=== PATIENT | male | born 1995 | race Caucasian/White ===

== ENCOUNTER 2016-08-24 12:35 | Inpatient (IN) | payer OTHER ==
[~2016-08-24] VITALS: Ht 177.8 cm; Wt 57.9 kg
[~2016-08-24 12:35] MED LIST: ALPRAZOLAM0.25 M2 PO; NASONEX17 GM BOTH NARES; OFLOXACIN10 M1 LEFT EYE; ZITHROMAX Z-PA250 MG PO
[2016-08-24 14:07] LABS: EOSINOPHIL (%) 3.1 % (0-5); EOSINOPHIL COUNT 0.2 K/uL (0-0.3); HEMATOCRIT 44.6 % (38.0-50.0); LYMPHOCYTE COUNT 2.4 K/uL (1.0-2.8); MCH 35.7 PG (29.0-34.0); MCHC 35.7 G/DL (30.0-36.0); MEAN PLAT.VOLUME 9.7 uM^3 (9.0-12.4); MONOCYTE COUNT 0.6 K/uL (0-0.8); NEUTROPHIL COUNT 2.6 K/uL (1.8-6.4); PLATELET COUNT 176 K/uL (156-360); RBC DIS.WIDTH-CV 12.8 % (11.8-14.6); RBC DIS.WIDTH-SD 45.6 % (39-53); RED BLOOD COUNT 4.46 M/uL (4.00-5.50); WHITE BLOOD COUNT 5.8 K/uL (4.1-10.2)
[2016-08-24] MEDS ORDERED: TRUVADA1 TABLET PO (14:09)
[2016-08-24] MEDS ORDERED: REYATAZ300 MG PO (14:10)
[2016-08-24] MEDS ORDERED: NORVIR100 M1 PO (14:10)
[2016-08-24 14:17] LABS: CHLORIDE 106 mEq/L (99-109); POTASSIUM 3.6 mEq/L (3.7-5.4); SODIUM 140 mEq/L (136-147)
[2016-08-24 14:19] LABS: GLUCOSE 84 mg/dL (70-99)
[2016-08-24 14:21] LABS: ANION GAP 10 MEQ/L (2-14); TOTAL BILIRUBIN 3.8 mg/dL (0.0-1.0)
[2016-08-24 14:22] LABS: SERUM ETHYL ALCOHOL < 10 mg/dL
[2016-08-24 14:23] LABS: ALKALINE PHOSPHATASE 87 IU/L (3-129); GFR ESTIMATE (CALCULATED) > 59 mL/min/
[2016-08-24 14:24] LABS: UREA NITROGEN (BUN) 13 mg/dL (9-23)
[2016-08-24 16:07] LABS: ADD MEDTOX COMMENT Y; AMPHETAMINE NEGATIVE (500 ng/mL); BARBITURATES NEGATIVE (200 ng/mL); BENZODIAZEPINES PRESUMPTIVE POSITIVE (150 ng/mL); COCAINE NEGATIVE (150 ng/mL); INTERNAL CONTROLS VALID? YES; METHADONE NEGATIVE (200 ng/mL); METHAMPHETAMINE NEGATIVE (500 ng/mL); OPIATES (MORPHINE) NEGATIVE (100 ng/mL); OXYCODONE PRESUMPTIVE POSITIVE (100 ng/mL); PHENCYCLIDINE NEGATIVE (25 ng/mL); PROPOXYPHENE NEGATIVE (300 ng/mL); THC CANNABINOIDS PRESUMPTIVE POSITIVE (50 ng/mL); TRICYCLIC ANTIDEPRESSANTS NEGATIVE (300 ng/mL)
[2016-08-24 16:44] VITALS: BP 121/57
[2016-08-24 16:48] LABS: BENZODIAZEPINES, URINE SCREEN POSITIVE (200 ng/mL)
[2016-08-25 07:50] VITALS: BP 102/48
[2016-08-25 15:11] VITALS: BP 138/67
[2016-08-26 07:47] VITALS: BP 114/58
== END 2016-08-26 11:59 | disposition home or self-care (01) | DRG 885 ==
LOC: EME 12:35 → 1WEST 15:22 → EDOF 15:22 → 1WEST 16:40
PROVIDERS: Emergency Medicine
DX: F33.9 Major depressive disorder, recurrent, unspecified (principal); R45.851 Suicidal ideations; B20 Human immunodeficiency virus [HIV] disease; F12.10 Cannabis abuse, uncomplicated; F11.10 Opioid abuse, uncomplicated
CPT/HCPCS: 80053; 84999; 85025; 90839; 99281; 99285; G0480

== ENCOUNTER 2017-07-15 16:16 | Emergency (ER) | payer OTHER ==
[~2017-07-15] VITALS: Ht 177.8 cm; Wt 63.5 kg
[~2017-07-15 16:16] MED LIST changes: +NORVIR100 M1 PO; +REYATAZ300 MG PO; +TRUVADA1 TABLET PO
[2017-07-15] MEDS ORDERED: GLYDO11 ML MM (18:13)
[2017-07-15] MEDS ORDERED: RECTIV30 GM PR (18:13)
[2017-07-15 18:22] VITALS: BP 127/94
== END 2017-07-15 18:23 | disposition home or self-care (01) ==
LOC: EME 16:16
DX: K60.2 Anal fissure, unspecified (principal); F41.9 Anxiety disorder, unspecified; B20 Human immunodeficiency virus [HIV] disease; F17.200 Nicotine dependence, unspecified, uncomplicated
CPT/HCPCS: 99281; 99283

== ENCOUNTER 2018-02-17 00:17 | Emergency (ER) | payer OTHER ==
[~2018-02-17] VITALS: Ht 180.3 cm; Wt 67.2 kg
[~2018-02-17 00:17] MED LIST changes: +GLYDO11 ML MM; +RECTIV30 GM PR
[2018-02-17 01:02] LABS: BASOPHIL (%) 0.4 % (0-1); EOSINOPHIL (%) 2.7 % (0-5); EOSINOPHIL COUNT 0.2 K/uL (0-0.3); HEMATOCRIT 39.4 % (38.0-50.0); HEMOGLOBIN 14.2 G/DL (12.5-16.6); IMMATURE GRANULOCYTE (%) 0.4 % (0.0-0.7); LYMPHOCYTE (%) 40.3 % (15-42); LYMPHOCYTE COUNT 2.9 K/uL (1.0-2.8); MCH 36.6 PG (29.0-34.0); MCV 101.5 FL (86-99); MONOCYTE (%) 9.8 % (3-12); MONOCYTE COUNT 0.7 K/uL (0-0.8); NEUTROPHIL (%) 46.4 % (45-76); NEUTROPHIL COUNT 3.3 K/uL (1.8-6.4); PLATELET COUNT 204 K/uL (156-360); RBC DIS.WIDTH-CV 11.9 % (11.8-14.6); RED BLOOD COUNT 3.88 M/uL (4.00-5.50); WHITE BLOOD COUNT 7.1 K/uL (4.1-10.2)
[2018-02-17 01:13] LABS: CHLORIDE 104 mEq/L (99-109); POTASSIUM 3.5 mEq/L (3.7-5.4); SODIUM 139 mEq/L (136-147)
[2018-02-17 01:14] LABS: GLUCOSE 122 mg/dL (70-99)
[2018-02-17 01:18] LABS: CREATININE 1.1 mg/dL (0.6-1.3); GFR ESTIMATE (CALCULATED) > 59 mL/min/ (58.99-99999)
[2018-02-17 01:19] LABS: UREA NITROGEN (BUN) 20 mg/dL (9-23)
[2018-02-17] MEDS ORDERED: BACITRAYCIN PLU28 G1 TP (02:12)
[2018-02-17] MEDS ORDERED: AUGMENTIN875 MG PO (02:28)
[2018-02-17 02:40] VITALS: BP 129/93
== END 2018-02-17 02:40 | disposition home or self-care (01) ==
LOC: EME 00:17
PROVIDERS: Emergency Medicine
DX: L55.1 Sunburn of second degree (principal); L03.116 Cellulitis of left lower limb; L03.115 Cellulitis of right lower limb; F41.9 Anxiety disorder, unspecified; F17.200 Nicotine dependence, unspecified, uncomplicated; Z21 Asymptomatic human immunodeficiency virus [HIV] infection status
CPT/HCPCS: 80048; 85025; 99281; 99284

== ENCOUNTER 2018-04-01 05:22 | Day surgery (SDC) | payer OTHER ==
[~2018-04-01] VITALS: Ht 177.8 cm; Wt 67.6 kg
[~2018-04-01 05:22] MED LIST changes: +AUGMENTIN875 MG PO; +BACITRAYCIN PLU28 G1 TP; +GENVOYA TABLET1 EACH PO; +MULTIPLE VITAM1 EACH PO
[2018-04-01 05:43] VITALS: BP 129/86
[2018-04-01] MEDS ORDERED: HYDROCODON-ACE1 EAC7 PO (08:39)
[2018-04-01 09:25] VITALS: BP 123/70
[2018-04-01 10:21] VITALS: BP 122/82
== END 2018-04-01 10:28 | disposition home or self-care (01) ==
LOC: SDC 05:22
DX: K60.1 Chronic anal fissure (principal); B20 Human immunodeficiency virus [HIV] disease; F41.9 Anxiety disorder, unspecified; F11.10 Opioid abuse, uncomplicated; F17.200 Nicotine dependence, unspecified, uncomplicated; Z83.3 Family history of diabetes mellitus; Z81.8 Family history of other mental and behavioral disorders; Z80.1 Family history of malignant neoplasm of trachea, bronchus and lung
CPT/HCPCS: J0330; J0585; J1100; J1170; J1885; J2405; J3010